=== PATIENT | female | born 1945 | race African-American/Black ===

== ENCOUNTER 2021-11-11 09:35 | Inpatient (IN) | payer MEDICARE ==
[2021-11-11] VITALS (8 sets, daily range): BP systolic 112–138; BP diastolic 35–46
[~2021-11-11] VITALS: Ht 165.1 cm; Wt 112.9 kg
[2021-11-11 10:48] LABS: BASOPHILS % 0.4 % (0.0-1.0); EOSINOPHILS # (AUTO) 0.1 (0.0-0.4); EOSINOPHILS % 0.8 % (0.0-6.0); LYMPHOCYTES # (AUTO) 1.5 (1.0-3.2); LYMPHOCYTES % 19.5 % (18.0-39.1); MEAN CORPUSCULAR HEMOGLOBIN 19.2 pg (28-32); MEAN CORPUSCULAR HGB CONC 27.1 g/dL (31-35); MEAN CORPUSCULAR VOLUME 70.7 fL (81-99); MONOCYTES # (AUTO) 0.8 (0.2-0.8); MONOCYTES % 9.6 % (4.4-11.3); NEUTROPHILS # (AUTO) 5.4 (2.1-6.9); NEUTROPHILS % 69.4 % (38.7-80.0); PLATELET COUNT 514 x10e3/uL (140-360); RED BLOOD COUNT 2.87 x10e6/uL (3.6-5.1); RED CELL DISTRIBUTION WIDTH 19.9 % (11.7-14.4)
[2021-11-11 10:55] LABS: HEMATOCRIT 20.3 % (34.2-44.1); HEMOGLOBIN 5.5 g/dL (12.0-16.0)
[2021-11-11] MEDS ORDERED: SODIUM CHLORIDE 0.9% 250ML 250 ML IV ONE (11:00)
[2021-11-11] MEDS ORDERED: FUROSEMIDE INJ 10 MG/ML 2 ML VIAL IV PRN (11:00)
[2021-11-11 11:17] LABS: ALANINE AMINOTRANSFERASE 19 IU/L (0-55); ALBUMIN 2.8 g/dL (3.5-5.0); ALBUMIN/GLOBULIN RATIO 0.7 (0.8-2.0); ALKALINE PHOSPHATASE 77 IU/L (40-150); ANION GAP 10.8 mmol/L (8-16); BLOOD UREA NITROGEN 20 mg/dL (7-26); BUN/CREATININE RATIO 16 (6-25); CALCIUM 9.1 mg/dL (8.4-10.2); CARBON DIOXIDE 26 mmol/L (22-29); CHLORIDE 106 mmol/L (98-107); CREATINE KINASE 52 IU/L (29-168); CREATININE, SERUM 1.22 mg/dL (0.57-1.11); EST GLOMERULAR FILTRATION RATE 52 ML/MIN (60-); GLUCOSE 101 mg/dL (74-118); POTASSIUM 3.8 mmol/L (3.5-5.1); SODIUM 139 mmol/L (136-145)
[2021-11-11 11:22] LABS: INR 2.92; PROTHROMBIN TIME 32.6 seconds (11.9-14.5)
[2021-11-11 11:23] LABS: PARTIAL THROMBOPLASTIN TIME 37.5 seconds (23.8-35.5)
[2021-11-11] MEDS ORDERED: ONDANSETRON HCL INJ 2MG/ML 2ML 2 MG/ML VIAL IV PRN (11:30)
[2021-11-11 12:16] LABS: ANISOCYTOSIS MODERATE; HYPOCHROMASIA MODERATE; MICROCYTOSIS MODERATE; PLATELET ESTIMATE SLIGHTLY INCREASED; PLATELET MORPHOLOGY COMMENT NORMAL; RBC MORPHOLOGY COMMENT ABNORMAL
[2021-11-11 12:38] LABS: TOTAL IRON BINDING CAPACITY 414 ug/dL (261-478); TRANSFERRIN 296 mg/dL (180-382)
[2021-11-11 12:43] LABS: % IRON SATURATION 1 % (15-50); IRON < 5 ug/dL (50-170)
[2021-11-11] MEDS ORDERED: CLONIDINE HCL 0.1 MG TAB PO PRN (17:00)
[2021-11-11] MEDS ORDERED: ACETAMINOPHEN 325 MG TAB PO PRN (17:00)
[2021-11-11] MEDS ORDERED: ALBUTEROL/IPRATROPIUM 3 ML NEB NEB PRN (17:45)
[2021-11-11] MEDS ORDERED: DEXTROSE 50% SYRINGE 50 ML IV PRN (17:45)
[2021-11-11] MEDS ORDERED: IRON SUCROSE 100 MG in SODIUM CHLORIDE 0.9% 100 ML 100 ML IV SCH (18:00)
[2021-11-11] MEDS ORDERED: SODIUM CHLORIDE 0.9% 250ML 250 ML ONE ×2 (18:06→21:28)
[2021-11-11] MEDS ORDERED: VITAMIN D PO (18:36)
[2021-11-11] MEDS ORDERED: METFORMIN HCL500 M2 PO (18:36)
[2021-11-11] MEDS ORDERED: ULTRAM50 MG PO (18:36)
[2021-11-11] MEDS ORDERED: [UNRECOGNIZED DRUG - OTHER] PO (18:36)
[2021-11-11] MEDS ORDERED: LORATADINE10 MG PO (18:36)
[2021-11-11] MEDS ORDERED: PROTOPIC100 GM TOP (18:36)
[2021-11-11] MEDS ORDERED: ASPIRIN CHEW81 MG PO (18:36)
[2021-11-11] MEDS ORDERED: PROBIOTIC PO (18:36)
[2021-11-11] MEDS ORDERED: DICLOFENAC SOD100 GM TOP (18:36)
[2021-11-11] MEDS ORDERED: FLONASE ALLERG9.9 ML INH (18:36)
[2021-11-11] MEDS ORDERED: COMBIVENT RESPIM4 GM IH (18:36)
[2021-11-11] MEDS ORDERED: CRESTOR10 MG PO (18:36)
[2021-11-11] MEDS ORDERED: BUPROPION HCL100 MG PO (18:36)
[2021-11-11] MEDS ORDERED: TIZANIDINE HCL4 M1 PO (18:36)
[2021-11-11] MEDS ORDERED: PANTOPRAZOLE SO40 MG PO (18:36)
[2021-11-11] MEDS ORDERED: VALSARTAN-HCTZ1 EAC2 PO (18:36)
[2021-11-11] MEDS ORDERED: LEXAPRO10 MG PO (18:36)
[2021-11-11] MEDS ORDERED: WARFARIN SODIUM5 MG PO (18:36)
[2021-11-11] MEDS ORDERED: TYLENOL EXTRA500 MG PO (18:36)
[2021-11-11 19:00] LABS: CREATINE KINASE 49 IU/L (29-168)
[2021-11-11] MEDS: INSULIN REGULAR, HUMAN 100 UNIT/1 ML SQ SCH (21:00)
[2021-11-11] MEDS ORDERED: ATORVASTATIN 20 MG TAB PO SCH (21:00)
[2021-11-12 04:09] VITALS: BP 104/51
[2021-11-12 06:10] LABS: BASOPHILS % 0.5 % (0.0-1.0); EOSINOPHILS # (AUTO) 0.1 (0.0-0.4); EOSINOPHILS % 1.1 % (0.0-6.0); HEMATOCRIT 27.4 % (34.2-44.1); LYMPHOCYTES # (AUTO) 1.8 (1.0-3.2); LYMPHOCYTES % 21.3 % (18.0-39.1); MEAN CORPUSCULAR HEMOGLOBIN 21.9 pg (28-32); MEAN CORPUSCULAR HGB CONC 29.2 g/dL (31-35); MEAN CORPUSCULAR VOLUME 75.1 fL (81-99); MONOCYTES # (AUTO) 0.8 (0.2-0.8); MONOCYTES % 9.6 % (4.4-11.3); NEUTROPHILS # (AUTO) 5.7 (2.1-6.9); NEUTROPHILS % 67.3 % (38.7-80.0); PLATELET COUNT 458 x10e3/uL (140-360); RED BLOOD COUNT 3.65 x10e6/uL (3.6-5.1); RED CELL DISTRIBUTION WIDTH 20.8 % (11.7-14.4)
[2021-11-12 06:38] LABS: INR 3.02; PROTHROMBIN TIME 33.4 seconds (11.9-14.5)
[2021-11-12 06:55] LABS: ALBUMIN 2.7 g/dL (3.5-5.0); ALBUMIN/GLOBULIN RATIO 0.8 (0.8-2.0); ANION GAP 11.2 mmol/L (8-16); CALCIUM 9.2 mg/dL (8.4-10.2); CREATININE, SERUM 0.95 mg/dL (0.57-1.11); POTASSIUM 4.2 mmol/L (3.5-5.1)
[2021-11-12] MEDS: INSULIN REGULAR, HUMAN 100 UNIT/1 ML SQ SCH ×2 (07:30→11:30)
[2021-11-12 07:34] LABS: CREATINE KINASE 50 IU/L (29-168)
[2021-11-12 07:49] VITALS: BP 114/42
[2021-11-12 08:00] VITALS: BP 123/46
[2021-11-12] MEDS ORDERED: FAMOTIDINE 20 MG TAB PO SCH (09:00)
[2021-11-12 10:19] LABS: ANISOCYTOSIS MODERATE; HYPOCHROMASIA SLIGHT; PLATELET ESTIMATE ADEQUATE; PLATELET MORPHOLOGY COMMENT NORMAL; RBC MORPHOLOGY COMMENT ABNORMAL
[2021-11-12 10:20] LABS: ELLIPTOCYTE, RBC SLIGHT; OVALOCYTES FEW; POIKILOCYTOSIS SLIGHT; SPHEROCYTES FEW
[2021-11-12 11:27] VITALS: BP 117/46
== END 2021-11-12 13:33 | disposition home or self-care (01) | DRG 812 ==
LOC: ER 09:45 → ERHOLD 11:28 → MED/SURG2 14:34
PROVIDERS: ADMIT Internal Medicine; ATTEND Internal Medicine
PROC: 30233N1 Transfusion of Nonautologous Red Blood Cells into Peripheral Vein, Percutaneous Approach (ICD-10-PCS; principal; 2021-11-11)
DX: D64.9 Anemia, unspecified (principal); N17.9 Acute kidney failure, unspecified; Z86.711 Personal history of pulmonary embolism; I10 Essential (primary) hypertension; E11.9 Type 2 diabetes mellitus without complications; E78.00 Pure hypercholesterolemia, unspecified; F41.9 Anxiety disorder, unspecified; K21.9 Gastro-esophageal reflux disease without esophagitis; F17.210 Nicotine dependence, cigarettes, uncomplicated; Z90.49 Acquired absence of other specified parts of digestive tract; Z88.5 Allergy status to narcotic agent; Z82.49 Family history of ischemic heart disease and other diseases of the circulatory system; Z79.01 Long term (current) use of anticoagulants; J44.9 Chronic obstructive pulmonary disease, unspecified; F39 Unspecified mood [affective] disorder; Z79.82 Long term (current) use of aspirin
CPT/HCPCS: 36415; 71045; 80053; 82550; 82553; 82948; 83540; 83880; 84466; 84484; 85025; 85610; 85730; 86850; 86900; 86920; 93005; 94799; 99284; J1756; J1817; J7050; P9016; U0002